=== PATIENT | male | born 2000 | race Caucasian/White ===

== ENCOUNTER 2024-08-09 10:10 | Emergency (ER) | payer OTHER, SELFPAY ==
[2024-08-09 10:19] VITALS: BP 119/71; PULSE 72; RESP 16; TEMP 36.6; O2SAT 98
--- NOTE | 2024-08-09 10:30 | ED.GENADULT ---
HPI - General Adult General Chief complaint: Laceration/Wound Stated complaint: cut on left hand Time Seen by Provider: 08/09/24 10:12 History of Present Illness HPI narrative: Patient is a 23-year-old gentleman who was working today when he cut his proximal posterior lateral index finger on the left on a nail. He has a proximally 1 cm well-approximated laceration. He has no numbness or tingling. He is up-to-date on his tetanus shot. Hemostasis was achieved immediately. Patient's wound is minimal and well-approximated. No other concerns noted. Related Data Home Medications ?Medication ?Instructions ?Recorded ?Confirmed No Known Home Medications 08/09/24 08/09/24 Allergies Allergy/AdvReac Type Severity Reaction Status Date / Time No Known Allergies Allergy Verified 08/09/24 10:18 Review of Systems Status of ROS: Reports: 10 or more systems reviewed and unremarkable except as noted in History and below Exam Narrative: Exam Narrative: EXAM GENERAL: Patient appears comfortable and well. EYES: No scleral icterus. LYMPH: No supraclavicular or cervical lymphadenopathy. SKIN: Well-approximated small laceration as noted above left posterior lateral index finger. EXT: No dependent lower extremity pedal edema. HEART: Regular rate and rhythm with no murmurs, rubs, or gallops. LUNGS: Clear to auscultation bilaterally with no crackles or wheezes. ABD: Soft, non tender, non distended. PSYCH: Good eye contact, speech is not pressured. Const: Vital Signs, click to edit/add: Vital Signs - 24 hr 08/09/24 10:19 Temperature 97.8 F Pulse Rate [Pulse Oximeter] 72 Respiratory Rate 16 Blood Pressure [Ri ght Upper Arm] 119/71 Pulse Oximetry 98 Oxygen Delivery Me thod Room Air Course Course ED Course: Patient seen examined. Wound cleaned. Vital Signs Vital signs: Initial Vital Signs Temperature 97.8 F 08/09/24 10:19 Temperature Source Temporal Artery Scan 08/09/24 10:19 Pulse Rate 72 08/09/24 10:19 Respiratory Rate 16 08/09/24 10:19 Blood Pressure 119/71 08/09/24 10:19 Blood Pressure Mean 87 08/09/24 10:19 Pulse Oximetry 98 08/09/24 10:19 Oxygen Delivery Method Room Air 08/09/24 10:19 Vital Signs Temperature 97.8 F 08/09/24 10:19 Pulse Rate 72 08/09/24 10:19 Respiratory Rate 16 08/09/24 10:19 Blood Pressure 119/71 08/09/24 10:19 Pulse Oximetry 98 08/09/24 10:19 Oxygen Delivery Method Room Air 08/09/24 10:19 Temperature 97.8 F 08/09/24 10:19 Pulse Rate 72 08/09/24 10:19 Respiratory Rate 16 08/09/24 10:19 Blood Pressure 119/71 08/09/24 10:19 Pulse Oximetry 98 08/09/24 10:19 Oxygen Delivery Method Room Air 08/09/24 10:19 Medical Decision Making MDM Narrative Medical decision making narrative: Patient presents with a small skin tear versus laceration posterior aspect left lateral index finger. After clean the wound it becomes clear that the patient needs only dressings and no further were formal wound closure. He is instructed on wound care will follow-up with his primary physician as needed. Discharge Plan Discharge Clinical Impression: Laceration Patient Disposition: Home, Self-Care Condition: Stable Instructions: Laceration (ED) Additional Instructions: Daily dressing changes with triple antibiotic. Keep wound clean Follow-up as needed. Activity Level: No Restrictions Discharge Diet: Regular Prescriptions: No Action No Known Home Medications Stand Alone Forms: [employer] Info Instructions
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
== END 2024-08-09 10:49 | disposition home or self-care (01) ==
LOC: ED 10:49
PROVIDERS: Emergency Provider Internal Medicine
DX: S61.211A Laceration without foreign body of left index finger without damage to nail, initial encounter (principal); W26.9XXA Contact with unspecified sharp object(s), initial encounter; Y99.0 Civilian activity done for income or pay
CPT/HCPCS: 99282; 99283